=== PATIENT | male | born 1945 | race Caucasian/White ===

== ENCOUNTER 2019-03-21 06:22 | Day surgery (SDC) | payer BC, MEDICARE ==
[2019-03-21] MEDS ORDERED: Lactated Ringers 1,000 ML IV SCH (07:15)
[2019-03-21] MEDS ORDERED: Midazolam 1 MG/ML 2 ML SDV ONE (07:17)
[2019-03-21] MEDS ORDERED: fentaNYL 100 MCG/2 ML SDV ONE (07:17)
[2019-03-21] MEDS ORDERED: Propofol 200 MG/20 ML SDV ONE ×2 (07:18→07:56)
[2019-03-21 09:43] VITALS: BP 132/78; PULSE 55
--- NOTE | 2019-03-21 14:45 | OR ---
DATE OF PROCEDURE: 03/21/2019 PREOPERATIVE DIAGNOSIS: History of colon polyps. POSTOPERATIVE DIAGNOSES: Diverticulosis, small transverse colon polyp, history of colon polyps. PROCEDURE: Colonoscopy to the cecum with biopsy resection of small transverse colon polyp. SURGEON: Travon Pinzon MD ANESTHESIA: IV anesthesia with monitored anesthesia care. INDICATION: This 73-year-old white male is here for a colonoscopy because of a history of colon polyps. He says his last colonoscopic exam was done 3 years ago. I counseled him for the procedure, including risks and alternatives, and he gave his informed consent to proceed. DESCRIPTION OF PROCEDURE: The patient was placed in the left lateral decubitus position. IV anesthesia was administered by the Anesthesia Service. Time-out was held. A rectal exam was performed, which was unremarkable. The flexible video Olympus colonoscope was introduced through his anus, up his rectum, and out his colon all the way to the cecum. En route, we saw a few scattered left-sided diverticula. There was no bleeding or inflammation associated with them. Additionally, en route to the cecum, we encountered a small polyp in the transverse colon, which was removed with several bites of the biopsy forceps. Once the cecum was reached, the scope was slowly withdrawn examining the mucosa throughout. No additional mucosal abnormalities were noted. The scope was retroflexed in the rectum with the distal rectum appearing unremarkable. The scope was straightened and removed. He tolerated the procedure well. Travon Pinzon MD /[id number]
== END 2019-03-21 09:05 | disposition home or self-care (01) ==
LOC: JP.SDS 06:22
PROVIDERS: ATTEND Surgery
DX: Z12.11 Encounter for screening for malignant neoplasm of colon (principal); D12.3 Benign neoplasm of transverse colon; K57.30 Diverticulosis of large intestine without perforation or abscess without bleeding; I25.10 Atherosclerotic heart disease of native coronary artery without angina pectoris; E78.00 Pure hypercholesterolemia, unspecified; G47.33 Obstructive sleep apnea (adult) (pediatric); Z86.010 Personal history of colon polyps
CPT/HCPCS: 45380; J2250; J2704; J3010; J7120; 88305

== ENCOUNTER 2021-10-01 04:45 | Emergency (ER) | payer MEDICARE ==
[2021-10-01 05:49] VITALS: PULSE 56
[2021-10-01] MEDS ORDERED: Aspirin 81 MG Tab.Chew PO ONE (06:08)
[2021-10-01 06:20] VITALS: BP 171/81
[2021-10-01] MEDS ORDERED: Heparin Sodium 5,000 Units/ML Vial IVPUSH ONE (06:22)
[2021-10-01] MEDS ORDERED: Heparin Sodium/D5W 25,000 UNITS/500 ML BAG IV SCH (06:30)
== END 2021-10-01 07:58 ==
LOC: JP.ED 04:45
DX: I24.9 Acute ischemic heart disease, unspecified (principal)
CPT/HCPCS: 36415; 71046; 71046-26; 80053; 84484; 85025; 93005; 93010; 96365; 99283; 99285-25; A9270-GY; J1644

== ENCOUNTER 2021-10-06 04:43 | Emergency (ER) | payer MEDICARE ==
[2021-10-06] MEDS ORDERED: Pantoprazole 40 MG Tab.CR PO STA (05:11)
[2021-10-06] MEDS ORDERED: LORazepam 0.5 MG Tab PO ONE (05:11)
[2021-10-06 05:52] LABS: CORONAVIRUS COVID-19 NAA NEGATIVE (NEGATIVE)
[2021-10-06 06:05] VITALS: BP 160/76; PULSE 60
== END 2021-10-06 06:11 | disposition home or self-care (01) ==
LOC: JP.ED 04:43
DX: F41.1 Generalized anxiety disorder (principal); F43.0 Acute stress reaction; F43.10 Post-traumatic stress disorder, unspecified; E78.00 Pure hypercholesterolemia, unspecified; I25.2 Old myocardial infarction; N40.0 Benign prostatic hyperplasia without lower urinary tract symptoms; Z79.82 Long term (current) use of aspirin; Z79.02 Long term (current) use of antithrombotics/antiplatelets; Z20.822 Contact with and (suspected) exposure to COVID-19
CPT/HCPCS: 0241U; 36415; 71045; 71045-26; 80053; 83735; 83880; 84484; 85025; 85379; 86140; 93005; 93010; 99282; 99285-25; A9270-GY

== ENCOUNTER 2023-07-21 07:20 | Day surgery (SDC) | payer MEDICARE ==
[~2023-07-21 07:20] MED LIST: Bupivacaine 0.5%/EPINEPHrine 1:200,000 50 ML MDV ONE
[2023-07-21] MEDS ORDERED: fentaNYL 250 MCG/5 ML SDV ONE (07:26)
[2023-07-21] MEDS ORDERED: Propofol 200 MG/20 ML SDV ONE (07:27)
[2023-07-21] MEDS ORDERED: Neostigmine Methylsulfate 10 MG/10 ML MDV ONE (07:27)
[2023-07-21] MEDS ORDERED: Succinylcholine 200 MG/10 ML MDV ONE (07:27)
[2023-07-21] MEDS ORDERED: Glycopyrrolate 0.2 MG/ML 5 ML MDV ONE (07:27)
[2023-07-21] MEDS ORDERED: Ondansetron 4 MG/2 ML SDV ONE (07:27)
[2023-07-21] MEDS ORDERED: Rocuronium 50 MG/5 ML Vial ONE (07:27)
[2023-07-21] MEDS ORDERED: Dexamethasone 4 MG/ML SDV ONE (07:27)
[2023-07-21] MEDS ORDERED: Sodium Chloride 0.9% 1,000 ML IV SCH (08:00)
[2023-07-21 08:01] LABS: HEMATOCRIT 41.5 % (38.4-49.7); MEAN CORPUSCULAR HEMOGLOBIN 32.5 pg (31.6-35.5); MEAN CORPUSCULAR HGB CONC 36.1 g/dL (31.6-35.5); MEAN CORPUSCULAR VOLUME 89.8 fL (81.4-99.0); RED BLOOD CELL COUNT 4.62 M/uL (4.14-5.76); WHITE BLOOD CELL COUNT,WBC 5.5 K/uL (3.2-11.0)
[2023-07-21 08:22] LABS: A/G RATIO 1.5 (1.2-2.2); ALANINE AMINOTRANSFERASE,ALT 25 U/L (12-78); ALBUMIN 3.7 g/dL (3.4-5.0); ALKALINE PHOSPHATASE 69 U/L (46-116); ANION GAP 5.3 mmol/L (5.0-14.0); ASPARTATE AMNIOTRANSFERASE,AST 18 U/L (15-37); BILIRUBIN TOTAL 1.2 mg/dL (0.2-1.0); BLOOD UREA NITROGEN,BUN 20 mg/dL (7-18); CALCIUM 8.4 mg/dL (8.5-10.1); CARBON DIOXIDE,CO2 30 mmol/L (21-32); CHLORIDE,CL 106 mmol/L (100-108); CREATININE 0.9 mg/dL (0.8-1.3); EST CRCL DRUG DOSING (CG) 70.97 mL/min; ESTIMATED GFR 88 mL/min (>60); GLUCOSE RANDOM 124 mg/dL (74-106); POTASSIUM,K 3.8 mmol/L (3.6-5.2); PROTEIN TOTAL,TP 6.2 g/dL (6.4-8.2); SODIUM,NA 141 mmol/L (140-148)
[2023-07-21] MEDS ORDERED: ceFAZolin 2 GM in Sodium Chloride 0.9% 50 ML IV ONE (08:50)
[2023-07-21] MEDS ORDERED: metroNIDAZOLE/Normal Saline 500 MG in Premix Bag 1 BAG IV ONE (08:50)
[2023-07-21] MEDS ORDERED: Ropivacaine 38 ML, dexAMETHasone 8 MG, EPINEPHrine 0.4 MG, Sodium Chloride 0.9% 39.6 ML NERVRT SCH ×4 (09:05)
[2023-07-21] MEDS ORDERED: Rocuronium 50 MG/5 ML Vial IV ONE (10:15)
[2023-07-21] MEDS ORDERED: Lactated Ringers 1,000 ML ONE (11:14)
[2023-07-21 14:15] VITALS: BP 156/74; PULSE 68
[2023-07-21] MEDS ORDERED: Tamsulosin 0.4 MG Cap.ER PO ONE (15:00)
[2023-07-21] MEDS ORDERED: Lidocaine 2% Jelly 10 ML Urojet MUCMEM ONE (15:27)
== END 2023-07-21 16:09 | disposition home or self-care (01) ==
LOC: JP.SDS 07:20
PROVIDERS: ATTEND Surgery
DX: K40.90 Unilateral inguinal hernia, without obstruction or gangrene, not specified as recurrent (principal); I10 Essential (primary) hypertension; I25.10 Atherosclerotic heart disease of native coronary artery without angina pectoris; K21.9 Gastro-esophageal reflux disease without esophagitis; Z87.891 Personal history of nicotine dependence
CPT/HCPCS: 36415; 49505; 51701; 80053; 85027; A9270; C1781; J0171; J0330; J0690; J1100; J1836; J2405; J2704; J2710; J2795; J3010; J3490; J7030; J7120

== ENCOUNTER 2023-08-21 12:25 | Emergency (ER) | payer MEDICARE ==
[2023-08-21 13:15] VITALS: BP 174/71; PULSE 57
[2023-08-21] MEDS ORDERED: Aspirin 81 MG Tab.Chew PO ONE (13:22)
[2023-08-21 13:31] LABS: BASOPHILS ABSOLUTE AUTO 0.03 K/uL (0.00-0.10); BASOPHILS PERCENT AUTO 0.4 % (0.1-1.3); EOSINOPHILS ABSOLUTE AUTO 0.13 K/uL (0.00-0.40); EOSINOPHILS PERCENT AUTO 1.9 % (0.0-5.4); HEMATOCRIT 40.4 % (38.4-49.7); HEMOGLOBIN 14.8 g/dL (12.9-16.9); IMMATURE GRAN PERCENT AUTO 0.1 % (0.0-0.7); LYMPHOCYTES ABSOLUTE AUTO 1.14 K/uL (0.8-3.3); LYMPHOCYTES PERCENT AUTO 17.1 % (11.4-47.7); MEAN CORPUSCULAR HEMOGLOBIN 32.7 pg (31.6-35.5); MEAN CORPUSCULAR HGB CONC 36.6 g/dL (31.6-35.5); MEAN CORPUSCULAR VOLUME 89.2 fL (81.4-99.0); MONOCYTES ABSOLUTE AUTO 0.63 K/uL (0.20-0.90); MONOCYTES PERCENT AUTO 9.4 % (3.3-12.6); NEUTROPHILS ABSOLUTE AUTO 4.73 K/uL (1.0-7.6); NEUTROPHILS PERCENT AUTO 71.1 % (40.0-78.1); PLATELET COUNT,PLT 158 K/uL (130-375); RED BLOOD CELL COUNT 4.53 M/uL (4.14-5.76); WHITE BLOOD CELL COUNT,WBC 6.7 K/uL (3.2-11.0)
[2023-08-21 13:34] LABS: IMMATURE GRAN ABSOLUTE AUTO 0.01 K/uL (0.00-0.23)
[2023-08-21 13:54] LABS: CALCIUM 8.5 mg/dL (8.5-10.1); CREATININE 0.8 mg/dL (0.8-1.3); EST CRCL DRUG DOSING (CG) 79.84 mL/min; TROPONIN I HIGH SENSITIVITY 5.2 pg/mL (<=60.3)
== END 2023-08-21 14:53 | disposition home or self-care (01) ==
LOC: JP.ED 12:25
DX: R07.9 Chest pain, unspecified (principal); E78.00 Pure hypercholesterolemia, unspecified; I10 Essential (primary) hypertension; Z79.899 Other long term (current) drug therapy
CPT/HCPCS: 36415; 71046; 80048; 84484; 85025; 93005; 99285; A9270; 93010; 99284

== ENCOUNTER 2024-04-18 07:49 | Day surgery (SDC) | payer MEDICARE ==
[2024-04-18] MEDS: Sodium Chloride 0.9% 1,000 ML IV SCH (08:18)
[2024-04-18] MEDS ORDERED: Propofol 200 MG/20 ML SDV ONE (10:15)
[2024-04-18] MEDS ORDERED: fentaNYL 50 MCG/ML SDV ONE (10:16)
[2024-04-18 11:59] VITALS: BP 130/60; PULSE 50
== END 2024-04-18 12:04 | disposition home or self-care (01) ==
LOC: JP.SDS 07:49
PROVIDERS: ATTEND Surgery
DX: Z12.11 Encounter for screening for malignant neoplasm of colon (principal); D12.5 Benign neoplasm of sigmoid colon; K57.30 Diverticulosis of large intestine without perforation or abscess without bleeding; G47.33 Obstructive sleep apnea (adult) (pediatric); I25.10 Atherosclerotic heart disease of native coronary artery without angina pectoris; R73.03 Prediabetes
CPT/HCPCS: 00811; 45380; 88305; J2704; J3010; J7030